=== PATIENT | female | born 1950 ===

== ENCOUNTER 2021-08-07 06:40 | Day surgery (SDC) | payer OTHER ==
[~2021-08-07 06:40] MED LIST: ALDACTONE25 MG; ALDACTONE25 MG PO; ANTIVERT25 M1 PO; ASA325 MG; ATARAX25 MG PO; CRESTOR5 MG PO; DICLOFENAC POTA50 MG PO; FOLIC PO; FORTAMET500 MG PO; MICARDIS40 MG PO; NASAL MIST126 ML; PLAVIX75 MG; PROTONIX40 MG PO; SIMVASTATIN10 MG PO; SYNTHROID50 MCG; TIZANIDINE HCL4 MG PO; ZETIA10 MG PO; ZYRTEC10 M3 PO
== END 2021-08-07 21:25 | disposition home or self-care (01) ==
LOC: CIR.AMB 06:40
PROVIDERS: ATTEND Surgery
DX: D05.12 Intraductal carcinoma in situ of left breast (principal); Z20.822 Contact with and (suspected) exposure to COVID-19